=== PATIENT | male | born 1955 | race Caucasian/White ===

== ENCOUNTER 2020-09-04 08:08 | Day surgery (SDC) | payer MEDICARE, MEDICAID ==
[2020-09-02 09:10] LABS: ALBUMIN 3.8 g/dL (3.4-5.0); ANION GAP 6 mmol/L (5-15); CALCIUM 9.4 mg/dL (8.5-10.1); CHLORIDE 105 mmol/L (98-107)
[2020-09-02 09:13] LABS: ALANINE AMINOTRANSFERASE 54 U/L (12-78); ALKALINE PHOSPHATASE 87 U/L (45-117); BILIRUBIN,TOTAL 0.6 mg/dL (0.2-1.0); CREATININE 0.98 mg/dL (0.7-1.3); TOTAL PROTEIN 7.1 g/dL (6.4-8.2)
[~2020-09-04] VITALS: Ht 167.6 cm; Wt 100.0 kg
[~2020-09-04 08:08] MED LIST: AMLO-150 PO; ASPI-1026 PO; ATOR-2 PO; BUPIVACAINE/PF 0.5% ONE; EPINEPHRINE 1 MG/ML, 1ML ONE; HYDR12.517 PO; LISI40TA9 PO; METF500T17 PO
[2020-09-04 08:40] VITALS: BP 143/79
[2020-09-04] MEDS ORDERED: CHLORHEXIDINE 15 ML UDC PO ONE (09:00)
[2020-09-04] MEDS ORDERED: DIPHENHYDRAMINE 50 MG/ML, 1ML IVPush PRN (09:00)
[2020-09-04] MEDS ORDERED: KETOROLAC 30 MG/1 ML IVPush PRN (09:00)
[2020-09-04] MEDS ORDERED: EPHEDRINE 50 MG/ML, 1ML IVPush PRN (09:00)
[2020-09-04] MEDS ORDERED: DIAZEPAM 5 MG/ML, 2ML IVPush PRN (09:00)
[2020-09-04] MEDS ORDERED: PROMETHAZINE 25 MG/ML, 1ML IVPush PRN (09:00)
[2020-09-04] MEDS ORDERED: OXYcodone 5 MG/5 ML ORAL.SOL UDC PO PRN (09:00)
[2020-09-04] MEDS ORDERED: ACETAMINOPHEN 325 MG TABLET PO PRN (09:00)
[2020-09-04] MEDS ORDERED: hydrALAzine 20 MG/ML, 1ML IV PRN (09:00)
[2020-09-04] MEDS ORDERED: METOPROLOL 1 MG/ML, 5ML IV PRN (09:00)
[2020-09-04] MEDS ORDERED: LABETALOL 5MG/ML, 20ML IV PRN (09:00)
[2020-09-04] MEDS ORDERED: LACTATED RINGERS 1,000 ML IV SCH (09:00)
[2020-09-04] MEDS ORDERED: ONDANSETRON 2MG/ML, 2ML IVPush PRN (09:00)
[2020-09-04] MEDS ORDERED: HALOPERIDOL 5 MG/ML IV PRN (09:00)
[2020-09-04] MEDS ORDERED: HYDROmorphone 1 MG/ML, 1ML INJ IVPush PRN (09:00)
[2020-09-04] MEDS ORDERED: METOCLOPRAMIDE 5 MG/ML, 2ML IVPush PRN (09:00)
[2020-09-04] MEDS ORDERED: FENTANYL PF 100 MCG/2ML IV PRN (09:00)
[2020-09-04] MEDS ORDERED: MEPERIDINE/PF 25MG/0.5ML IVPush PRN (09:00)
[2020-09-04] MEDS ORDERED: HYDROmorphone 1 MG/ML, 1ML INJ ONE (09:29)
[2020-09-04] MEDS ORDERED: MIDAZOLAM 1 MG/ML, 2ML ONE (09:29)
[2020-09-04] MEDS ORDERED: FENTANYL PF 250 MCG/5ML ONE (09:32)
[2020-09-04] MEDS ORDERED: ONDANSETRON 2MG/ML, 2ML ONE (11:05)
[2020-09-04] MEDS ORDERED: CEFOTETAN 1 GM ONE (11:05)
[2020-09-04] MEDS ORDERED: SUCCINYLCHOLINE 20 MG/ML, 10ML ONE (11:05)
[2020-09-04] MEDS ORDERED: ROCURONIUM 10 MG/ML,10ML ONE (11:05)
[2020-09-04] MEDS ORDERED: EPHEDRINE 50 MG/ML, 1ML ONE (11:05)
[2020-09-04] MEDS ORDERED: DEXAMETHASONE 4 MG/ML, 1ML ONE (11:05)
== END 2020-09-04 13:35 | disposition home or self-care (01) ==
LOC: OUT 08:08
PROVIDERS: ATTEND Surgery
DX: K60.3 Anal fistula (principal); K62.0 Anal polyp; I10 Essential (primary) hypertension; E11.9 Type 2 diabetes mellitus without complications; G47.33 Obstructive sleep apnea (adult) (pediatric); Z20.822 Contact with and (suspected) exposure to COVID-19; Z79.899 Other long term (current) drug therapy
CPT/HCPCS: 36415; 46020; 80053; 82962; 88304; 93005; J0171; J0330; J1100; J1170; J2250; J2405; J3010; J7120; U0003; U0005